=== PATIENT | male | born 1945 | race Hispanic/Latino ===

== ENCOUNTER 2019-09-10 14:25 | Observation (INO) | payer OTHER, MEDICARE ==
[~2019-09-10] VITALS: Ht 172.7 cm; Wt 88.5 kg
[2019-09-10] VITALS (14 sets, daily range): BP systolic 111–143; BP diastolic 49–90
[~2019-09-10 14:25] MED LIST: ATOR40TA71 PO; FINA5TAB41 PO; INSLAN SQ; LEVO500T89 PO; TAMS-1 PO; TYL3 PO
[2019-09-10 15:13] LABS: BASOPHILS % (AUTO) 0.6 % (0.0-5.0); EOSINOPHILS % (AUTO) 5.3 % (0.0-8.0); HEMATOCRIT 41.9 % (42-54); LYMPHOCYTES % (AUTO) 32.7 % (21.0-51.0); MEAN CORPUSCULAR HGB CONC 33.4 g/dL (32.0-36.0); MEAN CORPUSCULAR VOLUME 95.7 fL (79-99); MONOCYTES % (AUTO) 6.7 % (3.0-13.0); NEUTROPHILS % (AUTO) 54.3 % (40.0-77.0); PLATELET COUNT (AUTO) 217 K/uL (130-400); RED BLOOD CELL COUNT(AUTO) 4.38 MIL/uL (4.50-6.20); WHITE BLOOD COUNT (AUTO) 8.2 K/uL (4.8-10.8)
[2019-09-10 16:30] LABS: APPEARANCE,URINE CLOUDY (CLEAR); BILIRUBIN,URINE SMALL (NEGATIVE); COLOR,URINE YELLOW (YELLOW); GLUCOSE, URINE (UA) 500 mg/dL (NEGATIVE); KETONES,URINE 5 mg/dL (NEGATIVE); LEUKOCYTE ESTERASE ,URINE MODERATE (NEGATIVE); NITRATE,URINE NEGATIVE (NEGATIVE); OCCULT BLOOD,URINE TRACE-LYSED (NEGATIVE); PROTEIN,URINE 30 mg/dL (NEGATIVE)
[2019-09-10 16:35] LABS: ALBUMIN 3.4 g/dL (3.5-5.0); BILIRUBIN,TOTAL 0.4 mg/dL (0.2-1.0); CREATININE 1.2 mg/dL (0.5-1.5); POTASSIUM 3.7 mmol/L (3.5-5.1)
[2019-09-10 16:36] LABS: WBC,URINE 51-100 /HPF (0-1)
[2019-09-10 16:37] LABS: BACTERIA,URINE Few /HPF (None Seen); SQUAMOUS EPITHELIAL CELL,UR Moderate /HPF (0-2)
[2019-09-10] MEDS ORDERED: ZOSYN 3.375GM+NS 50ML 50 ML IV ONE (19:10)
[2019-09-10] MEDS ORDERED: FAMOTIDINE 20MG TAB 20 MG TAB ONE (19:10)
[2019-09-10] MEDS ORDERED: SODIUM CHLORIDE 0.9% 1000ML 1,000 ML IV ONE (19:11)
[2019-09-10] MEDS ORDERED: LIDOCAINE PF 2% 5ML ABBOJECT ONE (19:46)
[2019-09-10] MEDS ORDERED: ONDANSETRON HCL 4 MG/2 ML VIAL ONE (19:46)
[2019-09-10] MEDS ORDERED: DEXAMETHASONE SOD PHOSPHATE 10MG/ML 1ML VIAL ONE (19:46)
[2019-09-10] MEDS ORDERED: MIDAZOLAM HCL 1 MG/ML 2ML VIAL ONE (19:47)
[2019-09-10] MEDS ORDERED: ROCURONIUM 10MG/1ML SYR 10 MG/ML ML ONE (19:47)
[2019-09-10] MEDS ORDERED: NEOSTIGMINE 5MG/5ML SYR IV ONE (19:47)
[2019-09-10] MEDS ORDERED: PROPOFOL 10 MG/ML 20ML VIAL IV ONE (19:47)
[2019-09-10] MEDS ORDERED: FENTANYL CITRATE PF 50 MCG/1 ML 2ML VIAL ONE (19:47)
[2019-09-10] MEDS ORDERED: GLYCOPYRROLATE 1 MG/5 ML SYRINGE ONE (19:47)
[2019-09-10] MEDS ORDERED: EPHEDRINE SULFATE 50 MG/ML AMPULE ONE (20:27)
[2019-09-10] MEDS ORDERED: ACETAMINOPHEN 325 MG TAB PO PRN (20:30)
[2019-09-10] MEDS ORDERED: ONDANSETRON 4 MG TABLET PO PRN (20:30)
[2019-09-10] MEDS ORDERED: HYDRALAZINE HCL 20 MG/ML VIAL IV PRN (20:30)
[2019-09-10] MEDS: SODIUM CHLORIDE 0.9% 1000ML 1,000 ML IV SCH (20:30)
[2019-09-10] MEDS ORDERED: NEOMY SULF/BACITRAC ZN/POLY OINT 30GM TUBE TP ONE (21:54)
--- NOTE | 2019-09-10 23:50 | NUR ---
PT ARRIVED TO THE FLOOR VITAL SIGNS STABLE NO SIGNS OF BLEEDING AT SURGICAL SITE NOTED BLADER SCAN PATIENT, VOLUME OF 257 PER BLADDER SCANNER PT WITH SOME NUMBNESS ON LOWER EXTREMITIES PT DENIES SOB , DENIES CHEST PAIN
[2019-09-11] VITALS (12 sets, daily range): BP systolic 116–147; BP diastolic 59–72
--- NOTE | 2019-09-11 04:01 | NUR ---
PT'S BLADDER SHOWS 657 CC OF VOLUME Kael SNYDERD
[2019-09-11] MEDS ORDERED: ZOSYN 3.375GM+NS 50ML 50 ML IV SCH (05:00)
--- NOTE | 2019-09-11 05:30 | NUR ---
ORO CATHETER INSERTED PT TOLERATED PROCEDURE WELL DRESSING FROM SURGERY CHANGED SMALL AMOUNT OF BLEEDIG NOTED, HOWEVER HEMOSTATIS NOTED
[2019-09-11 05:50] LABS: HEMATOCRIT 37.7 % (42-54); MEAN CORPUSCULAR HEMOGLOBIN 31.1 pg (27.0-33.0); MEAN CORPUSCULAR HGB CONC 32.9 g/dL (32.0-36.0); MEAN CORPUSCULAR VOLUME 94.5 fL (79-99); RED BLOOD CELL COUNT(AUTO) 3.99 MIL/uL (4.50-6.20); RED CELL DISTRIBUTION WIDTH 12.8 % (11.0-15.5); WHITE BLOOD COUNT (AUTO) 8.6 K/uL (4.8-10.8)
[2019-09-11 06:12] LABS: CREATININE 0.9 mg/dL (0.5-1.5); POTASSIUM 3.5 mmol/L (3.5-5.1)
[2019-09-11] MEDS: SODIUM CHLORIDE 0.9% 1000ML 1,000 ML IV SCH ×2 (09:50→23:10)
[2019-09-11] MEDS ORDERED: HYDRALAZINE HCL 20 MG/ML VIAL IV PRN (10:45)
[2019-09-11] MEDS ORDERED: LIDOCAINE HCL-MPF 1% 2ML VIAL IV PRN (10:45)
[2019-09-11] MEDS ORDERED: MORPHINE SULFATE 2 MG/ML 1ML SYG IV PRN (10:45)
[2019-09-11] MEDS ORDERED: DiphenhydrAMINE HCL 50 MG/ML VIAL IV PRN (10:45)
[2019-09-11] MEDS ORDERED: ACETAMINOPHEN 325 MG TAB PO PRN ×2 (10:45)
[2019-09-11] MEDS ORDERED: NITROGLYCERIN 0.4 MG SL TAB SL PRN (10:45)
[2019-09-11] MEDS ORDERED: ONDANSETRON HCL 4 MG/2 ML VIAL IV PRN (10:45)
[2019-09-11] MEDS ORDERED: ZOLPIDEM TARTRATE 5 MG TAB PO PRN (10:45)
[2019-09-11] MEDS ORDERED: LACTULOSE 20 GM/30 ML UDCUP PO PRN (10:45)
[2019-09-11] MEDS ORDERED: POTASSIUM CHLORIDE 20MEQ/100ML 100 ML IV PRN (10:45)
[2019-09-11] MEDS ORDERED: ACETAMINOPHEN-CODEINE 300/30MG TAB PO PRN (10:45)
[2019-09-11] MEDS ORDERED: DIPHENHYDRAMINE HCL 25 MG CAPSULE PO PRN (10:45)
[2019-09-11] MEDS ORDERED: POTASSIUM CHLORIDE 10% ELIXIR 20 MEQ/15 ML UDCUP PO PRN (10:45)
[2019-09-11] MEDS ORDERED: MAG HYDROX/AL HYDROX/SIMETH ES 30 ML SUSP UDCUP PO PRN (10:45)
[2019-09-11] MEDS ORDERED: GUAIFENESIN-DM 200/20 MG 10 ML PO PRN (10:45)
[2019-09-11] MEDS ORDERED: MAGNESIUM 2GM PREMIX 50ML 50 ML IV PRN (10:45)
[2019-09-11] MEDS: INSULIN HUMULIN R 100 UNIT/ML 3ML SQ SCH ×3 (12:38→22:56)
[2019-09-11] MEDS: POTASSIUM CHLORIDE 20 MEQ ERTAB PO PRN ×2 (12:47→17:09)
--- NOTE | 2019-09-11 15:16 | NUR ---
CM NOTE/IA MEET WITH PATIENT IN ROOM. PER PATIENT, LIVES WITH FRIEND, INDEPENDENT WITH ADLS, NO DME IN USE, HAS PROVIDER 3HR PER DAY, AND FEELS SAFE TO RETURN HOME ONCE DISCHARGED. PERSON TO CALL FOR RIDE HOME IS CAREGIVER, DAXA MOORE AT [phone], NURSING MADE AWARE. Addendum: 09/13/19 at 1518 by MEAGAN PABLO RN CM Amended: Links added.
[2019-09-11] MEDS: ZOSYN 3.375GM+NS 50ML 50 ML IV SCH ×2 (19:06→21:00)
[2019-09-11] MEDS: FAMOTIDINE 20MG TAB 20 MG TAB PO SCH (21:00)
--- NOTE | 2019-09-11 23:10 | NUR ---
Patient called complaining that his IV site is leaking, attempted to fix it. Patient stated he wanted it out, informed patient that the IV site was required due to the antibiotic he is receiving. Patient stated he did not want it and did not want it restarted. Patient signed a refusal of treatment. Saline lock removed with catheter intact.
[2019-09-12 04:00] VITALS: BP 123/69
[2019-09-12] MEDS: ZOSYN 3.375GM+NS 50ML 50 ML IV SCH ×2 (05:00→13:00)
[2019-09-12 06:15] LABS: CREATININE 0.9 mg/dL (0.5-1.5)
[2019-09-12] MEDS: INSULIN HUMULIN R 100 UNIT/ML 3ML SQ SCH ×2 (07:05→11:30)
[2019-09-12 08:00] VITALS: BP 128/71
[2019-09-12] MEDS ORDERED: ENOXAPARIN SODIUM 40 MG/0.4 ML SYRINGE SQ SCH (09:00)
[2019-09-12] MEDS: FAMOTIDINE 20MG TAB 20 MG TAB PO SCH (10:03)
[2019-09-12 11:00] VITALS: BP 142/85
--- NOTE | 2019-09-12 13:15 | NUR ---
AMA pt anxious ,requesting to go home, pt iv out since last pm ,refused to have iv restarted . 1315 pt decided he was leaving AMA explained to pt how important it was for him to stay ,pt stated I am leaving I have better things to do than lie in bed for the rest of the day and wait on doctors .pt signed AMA form ,walked pt to ER entrance Addendum: 09/12/19 at 2013 by MAEGAN SKY RN RN Amended: Links added.
--- NOTE | 2019-09-12 14:03 | NUR ---
NOTIFIED DR. MORALES AND CLEMENCIA BUSH REGARDING PT WANTING TO LEAVE AMA. DR. MORALES SAID IF HE WANTED TO LEAVE AMA TO GIVE HIM THE FORM TO SIGN. PT DECIDED HE WAS LEAVING AND SIGNED AMA FORM. ROSEY, MADE AWARE, VERBALIZED UNDERSTANDING. Addendum: 09/12/19 at 1409 by CELIA CARLISLE RN (CONTINUED - FROM GIVING HIM FORM TO SIGN AND ALSO, DR. MORALES INSTRUCTED TO INFORM PT OF FOLLOWING UP WITH HIS REWORKER. PT WAS NOTIFIED OF FOLLOWING UP WITH REWORKER DUE TO AAA AND PT SAID HES HAD IT FOR A LONG TIME ALREADY & THAT IF HE DIES HE DIES.
== END 2019-09-12 13:45 | disposition left against medical advice (07) ==
LOC: EDH 14:25 → EDHIP 18:45 → 3CH 21:43
PROVIDERS: ADMIT Internal Medicine Pulmonary Disease; ATTEND Internal Medicine Pulmonary Disease
DX: N45.3 Epididymo-orchitis (principal); N45.2 Orchitis; N50.89 Other specified disorders of the male genital organs; R33.8 Other retention of urine; E11.9 Type 2 diabetes mellitus without complications; I10 Essential (primary) hypertension; E78.5 Hyperlipidemia, unspecified; N40.1 Benign prostatic hyperplasia with lower urinary tract symptoms; I71.4 Abdominal aortic aneurysm, without rupture; Z79.4 Long term (current) use of insulin; Z87.891 Personal history of nicotine dependence
CPT/HCPCS: 36415 ×3; 54520; 76775; 76870; 80048 ×2; 80053; 81001; 82550; 82948 ×6; 83605; 83735; 84484; 85025; 85027; 87040 ×2; 87070; 87076; 87088 ×2; 87205; 88307; 93005; 96365; 96366; 96372 ×2; 99285; G0378 ×7; J1100; J1650; J1815 ×2; J2001; J2250; J2405; J2543 ×5; J2704; J2710; J3010; J3490 ×2; J7030 ×2

== ENCOUNTER → 2024-05-01 | Outpatient (CLI) | payer OTHER, MEDICARE ==
[~2024-05-01] MED LIST changes: +IOHEXOL 350 MG/ML 100ML INFUS..BTL IV ONE; +LEVO-70 PO; -LEVO500T89 PO
--- NOTE | 2024-05-01 11:04 | HMCIMG ---
Exam Type: CT UROGRAM (ABD/PEL WWO) Clinical Information: HEMATURIA Comparison: None Contrast: 100 cc's Isovue 370 IV, no complications or adverse reactions CT Dose Index (CTDI): 31.60 mGy Dose Length Product (DLP): 1740.80 total mGy-cm Findings: Large fusiform infrarenal abdominal aortic aneurysm is seen measuring 16 cm in length by 9.2 cm in anteroposterior diameter by 8.1 cm in transverse diameter. The aneurysm is patent and there is no dissection or rupture or occlusion. There is no extravasation. No evidence of nephro or ureterolithiasis is found. No hydronephrosis or ureteral dilatation is seen. The lung bases are clear. The stomach is unremarkable. It shows no wall thickening. No gross ulceration is seen. It is not overly distended. There are no surrounding inflammatory changes. No wall lesions are identified to suggest cancer. The spleen is unremarkable. It is not enlarged. The pancreas shows normal anatomy. It is not fatty replaced. It shows no lesions. The pancreatic duct is not dilated. There is evidence of cholelithiasis. No evidence of acute or chronic inflammation is seen. The adrenal glands are unremarkable. There is no enlargement. No lesions are noted. The liver is unremarkable. It shows no focal masses. The appendix is unremarkable. It shows no evidence of inflammation. No appendicolith is seen. The small bowel is unremarkable. There is no evidence of dilatation to suggest obstruction. No evidence of adynamic ileus is seen. There is no small bowel wall thickening to suggest enteritis. The colon is unremarkable. The urinary bladder is unremarkable. There is no wall thickening to suggest tumor or inflammation. There are no intraluminal calculi. There are no diverticula. There is no evidence of chronic bladder outlet obstruction. There is no evidence of urinary bladder distention to suggest urinary retention. The prostate is enlarged. The bony and vascular structures are unremarkable for the patient's age. IMPRESSION: Large infrarenal abdominal aortic aneurysm. Enlarged prostate. Normal urinary tract otherwise. This study was performed using dose reduction techniques to include automated exposure control and/or adjustment of the mA and/or kV according to patient size.
--- NOTE | 2024-05-01 11:47 | HMCIMG ---
Exam Type: US RENAL SONOGRAM Clinical Information: Hematuria Comparison: None Findings: Examination shows normal renal size and echogenicity bilaterally. Preserved cortical thickness and corticomedullary junction region is seen. No hydronephrosis or calculi are seen. No renal masses are seen. There is no evidence of perinephric fluid on either side. No evidence of significant ureteral dilatation is seen. The right kidney measures 10.5 x 5 cm. The left kidney measures 11.5 x 5.9 cm. Simple cyst right kidney. The urinary bladder is normal. No bladder masses, stones, or wall thickening is seen. Prostate is enlarged. IMPRESSION: Right renal simple cyst. Enlarged prostate.
== END | disposition home or self-care (01) ==
LOC: RAH 09:19
PROVIDERS: ATTEND Internal Medicine
DX: I71.43 Infrarenal abdominal aortic aneurysm, without rupture (principal); N40.0 Benign prostatic hyperplasia without lower urinary tract symptoms; K80.20 Calculus of gallbladder without cholecystitis without obstruction; N28.1 Cyst of kidney, acquired; R31.9 Hematuria, unspecified
CPT/HCPCS: 74178; 76770; Q9967